=== PATIENT | female | born 1990 | race African-American/Black ===

== ENCOUNTER 2020-01-15 02:24 | Emergency (ER) | payer MEDICAID ==
[~2020-01-15] VITALS: Ht 167.6 cm; Wt 53.0 kg
[2020-01-15 03:34] LABS: HCG SCREEN NEGATIVE
[2020-01-15 05:48] VITALS: BP 138/74
== END 2020-01-15 05:57 | disposition home or self-care (01) ==
LOC: ER 02:24
DX: T43.621A Poisoning by amphetamines, accidental (unintentional), initial encounter (principal); F15.129 Other stimulant abuse with intoxication, unspecified; T40.1X1A Poisoning by heroin, accidental (unintentional), initial encounter; F11.120 Opioid abuse with intoxication, uncomplicated; F12.90 Cannabis use, unspecified, uncomplicated; R41.82 Altered mental status, unspecified; R00.0 Tachycardia, unspecified; Y92.59 Other trade areas as the place of occurrence of the external cause
CPT/HCPCS: 71045; 84703; 93005; 99285